=== PATIENT | female | born 1970 | race African-American/Black ===

== ENCOUNTER 2022-05-23 22:43 | Inpatient (IN) | payer OTHER ==
[~2022-05-23] VITALS: Ht 167.6 cm; Wt 86.6 kg
[2022-05-24 04:31] LABS: CHLORIDE 104 mEq/L (98-107)
[2022-05-24 05:57] LABS: BASOPHILS % 1.4 % (0.0-2.0); EOSINOPHILS % 0.9 % (0.0-5.0); LYMPHOCYTES % 16.9 % (20.0-50.0); MEAN CORPUSCULAR HEMOGLOBIN 14.3 pg (28.0-32.0); MEAN CORPUSCULAR VOLUME 54.6 fL (81.0-99.0); MEAN PLATELET VOLUME 9.3 fl (7.4-10.4); MONOCYTES % 8.1 % (2.0-8.0); NEUTROPHILS % 72.7 % (40.0-76.0); PLATELET 273 x1000/uL (130-400); RED CELL DISTRIBUTION WIDTH 25.7 % (11.6-14.6)
[2022-05-24 06:02] LABS: HEMOGLOBIN. 2.9 g/dL (12.0-16.0)
[2022-05-24 07:33] LABS: PLATELET ESTIMATE NORMAL
[2022-05-24] MEDS ORDERED: ONDANSETRON HCL 4MG/2ML INJ IV PRN (10:45)
[2022-05-24] MEDS ORDERED: ACETAMINOPHEN 325MG TABLET PO PRN (10:45)
[2022-05-24 12:23] LABS: HEMATOCRIT 17.6 % (36.0-48.0); HEMOGLOBIN 5.3 g/dL (12.0-16.0)
[2022-05-24 16:06] LABS: CLARITY URINE CLEAR (CLEAR); COLOR URINE YELLOW (YELLOW); KETONES URINE NEGATIVE (NEGATIVE); LEUKOCYTE ESTERASE URINE NEGATIVE (NEGATIVE); NITRITE URINE NEGATIVE (NEGATIVE); OCCULT BLOOD URINE 2+ (NEGATIVE); PH URINE 5.5 (4.5-8.0); PROTEIN URINE NEGATIVE (NEGATIVE); SPECIFIC GRAVITY URINE 1.015 (1.005-1.030)
[2022-05-24 16:08] VITALS: BP 119/86
[2022-05-24 16:19] VITALS: BP 119/68
[2022-05-24 16:32] LABS: *AMPHETAMINES SCREEN URINE NEGATIVE (NEGATIVE); *BARBITURATES SCREEN URINE NEGATIVE (NEGATIVE); *BENZODIAZEPINES SCREEN URINE NEGATIVE (NEGATIVE); *COCAINE SCREEN URINE NEGATIVE (NEGATIVE); CANNABINOID URINE SCREEN PRESUMTIVE POSITIVE (NEGATIVE); METHADONE URINE SCREEN NEGATIVE (NEGATIVE); OPIATES URINE SCREEN NEGATIVE (NEGATIVE); PHENCYCLIDINE URINE SCREEN NEGATIVE (NEGATIVE)
[2022-05-24 17:41] VITALS: BP 112/62
[2022-05-24 20:00] VITALS: BP 113/69
[2022-05-25] VITALS (10 sets, daily range): BP systolic 103–137; BP diastolic 62–78
[2022-05-25 07:33] LABS: BASOPHILS % 0.9 % (0.0-2.0); HEMATOCRIT. 25.1 % (36.0-48.0); HEMOGLOBIN. 7.9 g/dL (12.0-16.0); LYMPHOCYTES % 16.6 % (20.0-50.0); MEAN CORPUSCULAR HEMOGLOBIN 21.9 pg (28.0-32.0); MEAN CORPUSCULAR VOLUME 69.4 fL (81.0-99.0); MEAN PLATELET VOLUME 9.3 fl (7.4-10.4); MONOCYTES % 5.6 % (2.0-8.0); NEUTROPHILS % 74.9 % (40.0-76.0); PLATELET 282 x1000/uL (130-400); RED BLOOD CELL COUNT 3.62 mill/uL (4.2-5.4); RED CELL DISTRIBUTION WIDTH 32.6 % (11.6-14.6)
[2022-05-25 09:01] LABS: CHLORIDE 106 mEq/L (98-107)
== END 2022-05-25 18:54 | disposition home or self-care (01) | DRG 532 ==
LOC: ER 22:43 → 3WST 05-24 04:38 → ENRESERV 05-24 14:34
PROVIDERS: ADMIT Internal Medicine; ATTEND Internal Medicine
PROC: 30233N1 Transfusion of Nonautologous Red Blood Cells into Peripheral Vein, Percutaneous Approach (ICD-10-PCS; principal; 2022-05-24)
DX: D25.9 Leiomyoma of uterus, unspecified (principal); D64.9 Anemia, unspecified; N92.0 Excessive and frequent menstruation with regular cycle; E66.9 Obesity, unspecified; Z68.30 Body mass index [BMI] 30.0-30.9, adult
CPT/HCPCS: 36415; 71045; 76856; 80048; 80053; 80305; 81003; 83880; 84484; 85014; 85018; 85025; 86850; 86900; 86920; 93005; 99285; P9016